=== PATIENT | male | born 1945 | race Caucasian/White ===

== ENCOUNTER 2018-09-15 09:05 | Day surgery (SDC) | payer OTHER | END 2018-09-15 11:25 | disposition still patient (30) | LOC: FSGY 09:05 ==

== ENCOUNTER 2018-09-15 11:25 | Inpatient (IN) | payer OTHER ==
[2018-09-15] MEDS ORDERED: IPRATROPIUM/ALBUTEROL 3 ML DEYVIAL IH ONE (11:26)
--- NOTE | 2018-09-15 11:26 | EDPHY ---
H & P Time Seen by Provider: 09/15/18 11:25 HPI/ROS: CHIEF COMPLAINT: Shortness of breath HISTORY OF PRESENT ILLNESS: Sent from preop where he was pre op battery change for his deep brain stimulator. Of note he has been having some wheezing and a cough since early this week, did stop taking his Lasix as well. He traveled here for a neurosurgical battery change of his brain stimulator but was noted in preop to be wheezy and was sent here for evaluation. Symptoms moderate, not associated with chest pain or leg swelling or hemoptysis. Not associated with fever or chills. Not better or worse with anything. REVIEW OF SYSTEMS: Eye: no change in vision ENT: no sore throat Cardiac: no chest pain or syncope Pulmonary: HPI Abdomen: no vomiting, diarrhea, abdominal pain Musculoskeletal: no back pain Skin: no rash Neuro: Baseline resting tremor. Constitutional: no fever : no urinary symptoms A comprehensive 10 point review of systems is otherwise negative aside from elements mentioned in the history of present illness. PAST MEDICAL HISTORY: Includes COPD and CHF, tremor with deep brain stimulator , on 3 L nasal cannula at baseline. Hypertension, CHF, coronary disease, pulmonary embolism, IVC filter. Social history: Lives in [place] General Appearance: Alert and conversant, cooperative. Eyes: No scleral icterus. ENT, Mouth: Normal mucous membranes. Respiratory: Bilateral expiratory wheezing. Cardiovascular: Regular rate and rhythm. Gastrointestinal: Abdomen is soft and non tender. Neurological: Alert, face symmetric, normal motor and sensory in extremities. He has the baseline resting tremor. Skin: Warm and dry, no rashes. Musculoskeletal: No peripheral edema. Psychiatric: Not agitated. Emergency Department course/MDM: Patient initially had atrial flutter rate 140 but since then heart rates have been in the 70s. He received DuoNeb albuterol and IV steroids. Repeat examination shows that he is still quite wheezy, plan to admit for continued treatment of his pulmonary exacerbation. I think pneumonia or PE or CHF for unlikely, most likely he has acute COPD exacerbation which is multifactorial. Smoking Status: Former smoker Constitutional: Initial Vital Signs Temperature (C) 37.5 C 09/15/18 11:31 Heart Rate 75 09/15/18 11:31 Respiratory Rate 18 09/15/18 11:31 Blood Pressure 132/100 H 09/15/18 11:31 O2 Sat (%) 99 09/15/18 11:31 O2 Delivery Mode Nasal Cannula O2 (L/minute) 3 Allergies/Adverse Reactions: lisinopril Allergy (Verified 09/15/18 11:34) cough Home Medications: Medication Instructions Recorded Albuterol Sulfate 90 mcg 09/15/18 Atorvastatin Calcium 40 mg 09/15/18 Budesonide/Formoterol 160/4.5 09/15/18 Furosemide 40 mg 09/15/18 Gabapentin 300 mg 09/15/18 Hydroxyzine HCl 25 mg 09/15/18 Lidocaine 5% 09/15/18 Losartan Potassium 50 mg 09/15/18 Metoprolol Succinate 25 mg 09/15/18 Oxycodone HCl 5 mg 09/15/18 Potassium Chloride 10 meq 09/15/18 Rivaroxaban 20 mg 09/15/18 Sertraline HCl 100 mg 09/15/18 Triamcinolone 0.1% 09/15/18 traZODone 09/15/18 Medical Decision Making - Diagnostics EKG Interpretation: 12-lead EKG interpreted by me; official reading is in computer system. My interpretation is atrial flutter rate 140 Imaging Results: Imaging Impressions Chest X-Ray 09/15/18 11:26 Impression: 1. Large retrocardiac hiatal hernia. 2. Bronchitis/airways disease. 3. No definite pneumonia. Imaging: I viewed and interpreted images myself Consult/Admit Bed Type: [facility] - Data Points Laboratory Results: Laboratory Results 09/15/18 11:55 09/15/18 11:55 09/15/18 09/15/18 09/15/18 12:00 11:55 11:55 WBC 5.48 10^3/uL 10^3/uL (3.80-9.50) RBC 3.92 10^6/uL L 10^6/uL (4.40-6.38) Hgb 11.1 g/dL L g/dL (13.7-17.5) Hct 35.1 % L % (40.0-51.0) MCV 89.5 fL fL (81.5-99.8) MCH 28.3 pg pg (27.9-34.1) MCHC 31.6 g/dL L g/dL (32.4-36.7) RDW 13.8 % % (11.5-15.2) Plt Count 153 10^3/uL 10^3/uL (150-400) MPV 10.6 fL fL (8.7-11.7) Neut % (Auto) 65.3 % % (39.3-74.2) Lymph % (Auto) 16.1 % % (15.0-45.0) [place] % (Auto) 15.9 % H % (4.5-13.0) Eos % (Auto) 1.6 % % (0.6-7.6) Baso % (Auto) 0.7 % % (0.3-1.7) Nucleat RBC Rel Count 0.0 % % (0.0-0.2) Absolute Neuts (auto) 3.58 10^3/uL 10^3/uL (1.70-6.50) Absolute Lymphs (auto) 0.88 10^3/uL L 10^3/uL (1.00-3.00) Absolute Monos (auto) 0.87 10^3/uL H 10^3/uL (0.30-0.80) Absolute Eos (auto) 0.09 10^3/uL 10^3/uL (0.03-0.40) Absolute Basos (auto) 0.04 10^3/uL 10^3/uL (0.02-0.10) Absolute Nucleated RBC 0.00 10^3/uL 10^3/uL (0-0.01) Immature Gran % 0.4 % % (0.0-1.1) Immature Gran # 0.02 10^3/uL 10^3/uL (0.00-0.10) Sodium 137 mEq/L mEq/L (135-145) Potassium 4.2 mEq/L mEq/L (3.5-5.2) Chloride 106 mEq/L mEq/L (97-110) Carbon Dioxide 24 mEq/l mEq/l (22-31) Anion Gap 7 mEq/L mEq/L (6-14) BUN 8 mg/dL mg/dL (7-23) Creatinine 0.8 mg/dL mg/dL (0.7-1.3) Estimated GFR > 60 Glucose 112 mg/dL H mg/dL (70-100) Calcium 8.4 mg/dL L mg/dL (8.5-10.4) POC Troponin I 0.01 ng/mL ng/mL (0.00-0.08) NT-Pro-B Natriuret Pep 474 pg/mL H pg/mL (0-125) Medications Given: Discontinued Medications Albuterol (Proventil Neb) 3 ml IH EDNOW ONE Stop: 09/15/18 12:33 Last Admin: 09/15/18 12:41 Dose: 3 ml Albuterol/Ipratropium (Duoneb) 3 ml IH EDNOW ONE Stop: 09/15/18 11:27 Last Admin: 09/15/18 11:58 Dose: 3 ml Methylprednisolone Sodium Succinate (Solu-Medrol) 125 mg IVP EDNOW ONE Stop: 09/15/18 11:44 Last Admin: 09/15/18 11:58 Dose: 125 mg Point of Care Test Results: Chemistry 09/15/18 12:00 POC Troponin I 0.01 ng/mL ng/mL (0.00-0.08) Departure - Departure Disposition: [facility] Inpatient Acute Clinical Impression: Chronic obstructive pulmonary disease with acute exacerbation Condition: Good
[2018-09-15] MEDS ORDERED: methylPREDNISolone SOD SUCC 125 MG/2 ML VIAL IVP ONE (11:43)
[2018-09-15 12:08] LABS: PLATELET COUNT 153 10^3/uL (150-400)
--- NOTE | 2018-09-15 12:08 | CPEKG ---
Test Reason : OPEN Blood Pressure : / mmHG Vent. Rate : 141 BPM Atrial Rate : 000 BPM P-R Int : 130 ms QRS Dur : 141 ms QT Int : 349 ms P-R-T Axes : 000 203 -07 degrees QTc Int : 535 ms A-flutter/fibrillation w/ complete AV block RBBB and LPFB Confirmed by Aleks De La Garza ([id number]) on 09/15/2018 12:07:25 PM Referred By: Aleks De La Garza Confirmed By:Aleks De La Garza
[2018-09-15] MEDS ORDERED: ALBUTEROL 3 ML DEYVIAL IH ONE (12:32)
[2018-09-15] MEDS ORDERED: ACETAMINOPHEN 325 MG TAB PO PRN (14:09)
[2018-09-15] MEDS ORDERED: ONDANSETRON 4 MG/2 ML VIAL IVP PRN (14:09)
--- NOTE | 2018-09-15 14:21 | PDGENHP ---
History and Physical History and Physical: CC: Shortness of breath HISTORY: This patient with COPD and heart disease is here from [place] and was to have an elective generator change for his deep brain stimulator due to battery, but was sent from the preop unit to the ER because of respiratory difficulties. (stimulator is for essential tremor) Pt has a hx of COPD (though minimal smoking hx) and uses inhalers, and resp failure on 2 L O2 at home. Also hx of CARRIE but intolerant of CPAP so does not use. States "exposure to a virus" 6 days ago and now 3 days of productive cough and worsening SOB, no chest or leg pain, no more swelling than usual that he notices. Also has a hx of A fib no current AF sxs; states no hx of CHF but he takes CHF medicines. States that he has never had any fluid in lungs, notes he once had an episode when 16 lbs of fluid was removed by diuresis. Received initial treatment in ER but still dyspneic so being admitted to treat resp issues. He does not recall time of last Echo, but knows it is > 1 year ago. ROS: A comprehensive 10 system review revealed no other significant findings PAST MEDICAL HISTORY: Essential tremor, debilitating, treated by deep brain stimulator COPD, though only 6 months of tobacco exposure total, decades ago CHF? 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 I have reviewed the list and ordered appropriate medicines. PHYSICAL EXAMINATION: Vital Signs: Stable with highest temperature so far 37.5; initial heart rate 150 however since heart rate in the 70s, and he has had stable blood pressures respirations. Highest temperature so far 37.5 [employer] Work[employer]: now in sinus w normal rate Examination: General: alert, oriented, good mentation; quite obese Skin: warm, dry, good color, no rash HEENT: normal Neck: no mass, JVD is present Resps: obvious resp distress at rest in bed on Oxygen Lungs: severely diminished but otherwise clear breath sounds Heart: regular, no murmur Abdomen: obese, soft, nondistended, nontender, +BS, no mass Upper Extremities: normal Lower Extremities: 1+ edema both legs from feet to knees No Bleeding or bruising Neurologic: normal speech/language, normal customer service officer, no focal weakness IV site: looks normal LABORATORY DATA: Normocytic anemia at 11+, otherwise unremarkable CBC. Unremarkable basic metabolic panel, troponin normal RADIOLOGY STUDIES: I reviewed chest x-ray images done in the ER two views: There is no pulmmonary edema or vasc congestion, COPD is present. His device is present over the right chest. There is a hiatal hernia present with air-fluid level MICROBIOLOGY: flu negative + Rhinovirus by PCR 12 LEAD EKG: I reviewed for tracing from the ER which shows rapid atrial flutter 2-1 block, heart rate approximately 150 ASSESSMENT: * Acute Hypoxemic Resp Failure * Acute Rhinovirus infection * COPD with acute exacerbation * Acute R side CHF exacerbation * Acute episode rapid A Flutter in ER spontaeous conversion, now sinus (suspect triggered by acute resp events); Chronic Paroxysmal A Fib/Flutter * Chronic Resp Failure on Home Oxygen * Known sleep apnea, intolerant of CPAP so not using * Suspect Pulmonary HTN * Suspect Obesity Hypoventilation Syndrome * Morbid Obesity * High risk of Resp Complications with anesthesia due to all of above, especially due to acute components * ? if he also has any cardiac L side or valve issues PLANS: * His admitted to the hospital for cardiac monitoring and management of his acute resp failure * surgery to be delayed until next week with appropriate stablization of his resp/cardiac issues; doubt he will wear CPAP here, but would push for it in post op setting if he remains in hospital post op * Will put continue xarelto for now, stop when it is felt he will be stable for surgery 48 hours from that time; would not use heparin bridge unless other issues indicate it * echo ordered to assess LV and valve functions * Continue his inhaled long acting combination therapy * Duonebs * Prednisone * zithromax added for acute episode * IV diuresis * low salt diet * continue metoprolol for rate control, may need increased med if any further rapid rate episodes * Suggested he seek outpt consultations for weight loss, and for other options for [facility], or he can come to our community for this * Suggested he seek consultation with urologist as well in outpt setting I have reviewed the patient's case in detail with Dr. Licha Adams. We agreed on plans as above, which I have reviewed w pt and as well
--- NOTE | 2018-09-15 15:02 | PDMN ---
Medical Necessity Medical necessity: [facility] M100 COPD- 73 yo M presents with SOB, wheezing- pt here for DBS battery change but was noted to have SOB/ wheezing- PMHx: COPD, CHF, afib/af, depression, hypercholesterolemia, HTN, PE, tremor with DBS, pt lives in [place] EKG in ER shows rapid aflutter 2-1 block, HR approx. 150., anticipate > 2 MN ongoing med nec care- further monitoring, eval and tx.
[2018-09-15] MEDS: IPRATROPIUM/ALBUTEROL 3 ML DEYVIAL IH SCH ×2 (15:29→21:03)
[2018-09-15] MEDS: predniSONE 20 MG TAB PO SCH (17:30)
[2018-09-15] MEDS ORDERED: AZITHROMYCIN 250 MG TAB PO ONE (17:43)
[2018-09-15] MEDS ORDERED: ALBUTEROL 60 PUFFS/8 GM MDI IH PRN (17:43)
[2018-09-15] MEDS ORDERED: hydrOXYzine HCL 25 MG TAB PO PRN (17:43)
[2018-09-15] MEDS ORDERED: valACYclovir 500 MG TAB PO PRN (17:43)
[2018-09-15] MEDS ORDERED: FUROSEMIDE 40 MG/4 ML VIAL IVP ONE (17:52)
[2018-09-15] MEDS ORDERED: PROTOCOL POTASSIUM 1 DOSE MISC PRN (17:53)
[2018-09-15] MEDS ORDERED: PROTOCOL MAGNESIUM 1 DOSE IV PRN (17:53)
[2018-09-15] MEDS ORDERED: LOSARTAN POTASSIUM 25 MG TAB PO SCH (18:00)
[2018-09-15] MEDS: oxyCODONE IR 5 MG TAB PO PRN (18:11)
[2018-09-15] MEDS: ATORVASTATIN CALCIUM 40 MG TAB PO SCH (18:23)
[2018-09-15] MEDS ORDERED: CYCLOBENZAPRINE 10 MG TAB PO ONE (19:37)
[2018-09-15] MEDS: MELATONIN 3 MG TAB PO SCH (20:25)
[2018-09-15] MEDS: DOCUSATE SODIUM 100 MG CAP PO SCH (20:25)
[2018-09-15] MEDS: METOPROLOL TARTRATE 25 MG TAB PO SCH (20:26)
[2018-09-15] MEDS: CARBOXYMETHYLCELLULOSE 1% 0.4 ML DROPERETTE EACHEYE SCH (20:28)
[2018-09-15] MEDS: BUDESONIDE/FORMOTEROL 160/4.5 60 PUFFS/MDI IH SCH (21:05)
[2018-09-16] MEDS: IPRATROPIUM/ALBUTEROL 3 ML DEYVIAL IH SCH ×4 (05:12→21:38)
[2018-09-16] MEDS: oxyCODONE IR 5 MG TAB PO PRN (05:28)
[2018-09-16] MEDS: CARBOXYMETHYLCELLULOSE 1% 0.4 ML DROPERETTE EACHEYE SCH ×4 (05:28→20:41)
--- NOTE | 2018-09-16 07:19 | GCON ---
[f rep st] CONSULTATION DATE OF CONSULTATION: 09/15/2018 HPI: The patient is a 73-year-old male who has essential tremor and history of bilateral deep brain stimulation [place] [address] Alegria. He has a single generator implanted in the right chest wall that was at end of life. He was therefore scheduled for surgery to undergo replacement of his deep b rain stimulator generator. He came for surgery today on September 15. Upon evaluation and preop, the p atient was found to be wheezing and having difficulty with breathing. He states he has not taken his Lasix in the past 2 days as he was traveling and forgot to. PAST MEDICAL HISTORY: Essential tremor, COPD, CHF, AFib/flutter, depression, hypercholesterolemia. FAMILY HISTORY: Denies any pertinent neurosurgical family history. PAST SURGICAL HISTORY: Deep brain stimulation in 2013. ALLERGIES: Lisinopril, morphine. CURRENT HOME MEDICATIONS: Symbicort, senna, Valtrex, oxycodone, Colace, albuterol, Lasix, Lipitor, h ydroxyzine, Lopressor, Cozaar, Zoloft Xarelto, Klor-Con, and triamcinolone cream. REVIEW OF SYSTEMS: Negative except for what is mentioned in HPI. PHYSICAL EXAM: Patient seen and examined. HEENT: The pupils are equal and reactive. His extraocul ar movements are intact. Facial expression is symmetrical. Tongue is midline with protrusion. Hear ing is grossly intact. EXTREMITIES: Muscle strength is well preserved in upper and lower extremitie s at a 5/5 and sensation is intact to light touch. ASSESSMENT/PLAN: In summary, the patient is a 73-year-old male with essential tremor, history of karan p brain stimulation. He originally presented to the hospital to undergo elective replacement of his DBS generator due to battery nearing end of life. He was found to have difficulty breathing and whee zing and thus the surgery was canceled and he was [facility] possible [facility] of COPD or CHF. We will continue to follow along while the maria guadalupe galvez is an inpatient admitted under Medicine. If the patient gets cleared from a medical standpoint , we could proceed with battery placement during this hospital admission. /[id number]/MODL
[2018-09-16] MEDS: AZITHROMYCIN 250 MG TAB PO SCH (08:21)
[2018-09-16] MEDS: DOCUSATE SODIUM 100 MG CAP PO SCH ×2 (08:21→20:41)
[2018-09-16] MEDS: SERTRALINE HCL 100 MG TAB PO SCH (08:21)
[2018-09-16] MEDS: POTASSIUM CL 20 MEQ TAB PO SCH (08:22)
[2018-09-16] MEDS: METOPROLOL TARTRATE 25 MG TAB PO SCH ×2 (08:22→20:41)
[2018-09-16] MEDS: predniSONE 20 MG TAB PO SCH ×2 (08:23→14:01)
[2018-09-16] MEDS: TRIAMCINOLONE 0.1% 15 GM CRTUBE TP SCH (08:30)
[2018-09-16] MEDS ORDERED: FUROSEMIDE 40 MG/4 ML VIAL IVP SCH (09:00)
[2018-09-16] MEDS ORDERED: RIVAROXABAN 20 MG TAB PO SCH (09:00)
--- NOTE | 2018-09-16 09:41 | SOAPPROG ---
SOAP Progress Note Assessment/Plan: Assessment: 73 yo M admitted for respirator failure prior to DBS battery placement Plan: neuro: stable can replace battery this week when cleared by medicine will hold xarelto 48 hour prior to surgery please call with neuro changes 09/16/18 09:39 Subjective: no issues, breathing improved Objective: Vital Signs Temp Pulse Resp BP Pulse Ox 36.8 C 65 18 111/63 97 09/16/18 07:58 09/16/18 07:58 09/16/18 07:58 09/16/18 07:58 09/16/18 07:58 Microbiology 09/15/18 17:20 Respiratory Panel (PCR) - Final Nasal, Sinus - Anaerobic Tube/Swab Human Rhinovirus/Enterovirus Laboratory Results 09/16/18 04:56 09/15/18 09/16/18 09/17/18 05:59 05:59 05:59 Intake Total 1075 Output Total 3200 Balance -2125 AAOx4 ,+FC PERRL, EOMI, no facial droop 5/5 + light touch ICD10 Worksheet Patient Problems: Problems Problem Status Onset Chronic obstructive pulmonary disease with acute exacerbation Acute
[2018-09-16] MEDS: BUDESONIDE/FORMOTEROL 160/4.5 60 PUFFS/MDI IH SCH ×2 (10:55→21:41)
--- NOTE | 2018-09-16 13:23 | HOSPPROG ---
Hospitalist Progress Note Assessment/Plan: ASSESSMENT: * Acute Hypoxemic Resp Failure, resolving * Acute Rhinovirus infection * COPD with acute exacerbation * Acute R side CHF exacerbation with volume overload. CXR did now reveal significant pulmonary edema * Hypotension in pt with hx of HTN, likely due to diuresis * Acute episode rapid A Flutter in ER spontaeous conversion, now sinus (suspect triggered by acute resp events); Chronic Paroxysmal A Fib/Flutter * Known sleep apnea, intolerant of CPAP so not using * Morbid Obesity PLANS: He has diuresed significantly but now has hypotension. Will hold diuretics and BP until reevaluation tomorrow increase Prednisone cont Azithromycin will hold Xarelto cont Meprolol can hopefully have DBS generator replaced while inpatient Subjective: low bp. resp status is improving. Objective: Vital Signs Temp Pulse Resp BP Pulse Ox 36.7 C 73 16 96/55 L 95 09/16/18 11:14 09/16/18 11:14 09/16/18 11:14 09/16/18 11:14 09/16/18 11:14 Microbiology 09/15/18 17:20 Respiratory Panel (PCR) - Final Nasal, Sinus - Anaerobic Tube/Swab Human Rhinovirus/Enterovirus Laboratory Results 09/16/18 04:56 09/15/18 09/16/18 09/17/18 05:59 05:59 05:59 Intake Total 1075 Output Total 3200 Balance -2125 - Physical Exam Constitutional: no apparent distress Eyes: PERRL Ears, Nose, Mouth, Throat: moist mucous membranes, hearing normal Cardiovascular: regular rate and rhythym, edema Respiratory: no respiratory distress, no rales or rhonchi, reduced air movement Gastrointestinal: normoactive bowel sounds, soft, non-tender abdomen Skin: warm Neurologic: AAOx3 Psychiatric: interacting appropriately, not anxious, not encephalopathic Lymph, Heme, Immunologic: No petechiae ICD10 Worksheet Patient Problems: Problems Problem Status Onset Chronic obstructive pulmonary disease with acute exacerbation Acute
--- NOTE | 2018-09-16 13:40 | ASMTCMCOM ---
CM Note CM Note Notes: Pt scheduled for deep brain stimulator battery replacement which has been postponed 2/2 COPD exacerbation. He has a hx of essential tremor with DBS placement in 2013. He also has a hx of COPD, CHF, afib, depression with med Zoloft. Surgery to follow when pt is medically cleared. CM will follow for any d/c needs however anticipate he will d/c home with his Brittni and no CM needs. D/C plan: TBD, anticipate home independent D/C plan: anticipate home independent Date Signed: 09/16/2018 01:40 PM Electronically Signed By:LAURO Castellanos
--- NOTE | 2018-09-16 13:55 | ECHO ---
[email or web address] [address] [address] Main: [phone] Fax: Transthoracic Echocardiogram Name: BLAYNE WINCHESTER MR#: [id number] Study Date: 09/16/2018 Study Time: 12:57 PM Date of : 1945 Age: 73 year(s) Height: 170.2 cm (67 in.) Weight: 127.01 kg (280 lb.) BSA: 2.33 m2 Gender: Male Examination: Echo Indication: suspect pulm HTN R side CHF, ? L side or valve dz Image Quality: Technically Difficult Contrast: Requested by: Allan Tavares BP: 96 mmHg/55 mmHg Heart Rate: Rhythm: Indication: suspect pulm HTN R side CHF, ? L side or valve dz Procedure Staff Quantitative Associate: Maryse Reeder [facility] Reading Physician: Melvi Toro MD Requesting Provider: Conclusions: Normal size left ventricle. No LV hypertrophy. Cannot rule out wall motion abnormality due to poor endocardial resolution. EF is 61 %. Grossly normal lv systolic function. Normal diastolic LV function. Grossly normal RV size and systolic function.. The left atrium is mildly dilated. Trivial to mild aortic valve regurgitation. No aortic valve stenosis is present. Trivial tricuspid valve regurgitation. Pulmonary artery pressure is not obtained due to inadequate TR jet. No pericardial effusion. There is no previous echocardiogram for comparison. Measurements: Chambers Valvular Assessment AV/MV Valvular Assessment TV/PV Normal Normal Normal Name Value Range Name Value Range Name Value Range Ao Pretty (MM): 3.0 cm (2.2 cm-3.7 AV Vmax: 1.64 m/s (1 m/s-1.7 PV Vmax: 1.03 m/s (0.6 m/s-0.9 cm) m/s) m/s) IVSd (2D): 0.8 cm (0.6 cm-1.1 AV maxP mmHg ( - ) PV PGmax: 4 mmHg ( - ) cm) LVOT Vmax: 1.21 m/s (0.7 m/s-1.1 LVDd (2D): 3.8 cm (4.2 cm-5.9 m/s) cm) SHAYNA (Vmax): 2.8 cm2 ( - ) LVDs (2D): 2.3 cm (2.1 cm-4 AR (PHT): 691 ms ( - ) cm) MV E Vmax: 0.77 m/s ( - ) LVPWd (2D): 0.9 cm (0.6 cm-1 MV A Vmax: 0.89 m/s ( - ) cm) MV E/A: 0.87 ( - ) Patient: BLAYNE WINCHESTER Study Date: 09/16/2018 Page 1 of 2 12:57 PM LVOTd 2.2 cm 2.2 cm mm LVEF (BP): 61 % (>=55 %) RVDd(2D): 3.2 cm (1.9 cm-3.8 cmmm) Continued Measurements: Chambers Valvular Assessment AV/MV Name Value Name Value LADs Lon.7 cm MV DecTime: 299 m/s LA Area: 26.1 cm2 MV E' Septal: 0.06 m/s LA Volume: 83 ml MV E/E' Septal: 12.50 LA Volume Index: 35.6 ml/m2 MV E/E' Lateral: 7.70 TAPSE: 2.3 cm AR Vmax: 3.49 cm/s RA Area: 15.1 cm2 Additional Vessels Name Value Ao Ascendin.6 cm Findings: Left Ventricle: Normal size left ventricle. No LV hypertrophy. Cannot rule out wall motion abnormality due to poor endocardial resolution. EF is 61 %. Grossly normal lv systolic function. Normal diastolic LV function. Right Ventricle: Grossly normal RV size and systolic function.. Left Atrium: The left atrium is mildly dilated. Right Atrium: The right atrium is normal in size. Mitral Valve: There is mild thickening of the mitral valve leaflets. Mild mitral annular calcification. Trivial mitral valve regurgitation. No mitral stenosis is present. Aortic Valve: The aortic valve is tri-leaflet. Aortic sclerosis is present. Trivial to mild aortic valve regurgitation. No aortic valve stenosis is present. Tricuspid Valve: Tricuspid valve not well visualized. Trivial tricuspid valve regurgitation. Pulmonary artery pressure is not obtained due to inadequate TR jet. Pulmonic Valve: Pulmonary valve not well visualized. There is no pulmonic regurgitation seen. Aorta: Normal size aortic root measuring 3.0 cm. Normal size ascending aorta measuring 3.6 cm. IVC: The IVC is not visualized. Pericardium: No pericardial effusion. (No Signature Object) Patient: BLAYNE WINCHESTER Study Date: 09/16/2018 Page 2 of 2 12:57 PM [id number]
[2018-09-16] MEDS: ATORVASTATIN CALCIUM 40 MG TAB PO SCH (17:03)
[2018-09-16] MEDS: MELATONIN 3 MG TAB PO SCH (20:41)
[2018-09-17] MEDS: CARBOXYMETHYLCELLULOSE 1% 0.4 ML DROPERETTE EACHEYE SCH ×4 (05:31→21:02)
[2018-09-17] MEDS: IPRATROPIUM/ALBUTEROL 3 ML DEYVIAL IH SCH ×4 (06:01→21:42)
[2018-09-17] MEDS: DOCUSATE SODIUM 100 MG CAP PO SCH ×2 (09:37→21:00)
[2018-09-17] MEDS: POTASSIUM CL 20 MEQ TAB PO SCH (09:37)
[2018-09-17] MEDS: predniSONE 20 MG TAB PO SCH (09:37)
[2018-09-17] MEDS: SERTRALINE HCL 100 MG TAB PO SCH (09:38)
[2018-09-17] MEDS: AZITHROMYCIN 250 MG TAB PO SCH (09:38)
[2018-09-17] MEDS: BUDESONIDE/FORMOTEROL 160/4.5 60 PUFFS/MDI IH SCH ×2 (09:42→21:43)
[2018-09-17] MEDS: TRIAMCINOLONE 0.1% 15 GM CRTUBE TP SCH (09:43)
[2018-09-17] MEDS: METOPROLOL TARTRATE 25 MG TAB PO SCH ×2 (09:55→20:59)
[2018-09-17] MEDS ORDERED: FUROSEMIDE 20 MG TAB PO ONE (10:23)
--- NOTE | 2018-09-17 10:29 | HOSPPROG ---
Hospitalist Progress Note Assessment/Plan: 73 yo male who was scheduled to have a DBS generator repaired and found to have increased O2 needs and wheezing. Surgery was postponed and he was admitted for further w/u and management ASSESSMENT: * Acute Hypoxemic Resp Failure, resolving, etiology primarily viral infection with acute COPD exacerbation. Some component of volume overload, but no significant pulmonary edema on CXR * Acute Rhinovirus infection * COPD with acute exacerbation * Acute R side CHF exacerbation with volume overload. CXR did now reveal significant pulmonary edema * TTE unremarkable, preserved LVEF, but did not measure pulmonary artery pressure * Hypotension in pt with hx of HTN, likely due to diuresis * Acute episode rapid A Flutter in ER spontaeous conversion, now sinus (suspect triggered by acute resp events); Chronic Paroxysmal A Fib/Flutter * Known sleep apnea, intolerant of CPAP so not using * Morbid Obesity PLANS: He has diuresed significantly but now with soft BP. The pt reports not compliance with scheduled diuretics and does not really recall when he last took them. Going forward he likely needs once daily dosing. Due to his soft BP, I will give Lasix 20mg once today and ongoing regimen (20mg - 40mg) po daily can be decided upon tomorrow. cont Azithromycin will hold Xarelto cont Meprolol, I will decrease dose given soft bp Hold ARB can hopefully have DBS generator replaced while inpatient. Last Xarelto dose was on 09/16/18 a.m. will make NPO at midnight in case procedure is possible. Subjective: no cp. sob is much improved. bp is still soft. Objective: Vital Signs Temp Pulse Resp BP Pulse Ox 36.7 C 64 16 99/65 L 97 09/17/18 07:43 09/17/18 07:43 09/17/18 07:43 09/17/18 07:43 09/17/18 07:43 Laboratory Results 09/17/18 04:36 09/16/18 09/17/18 09/18/18 05:59 05:59 05:59 Intake Total 1075 2150 Output Total 3200 1700 Balance -2125 450 - Physical Exam Constitutional: no apparent distress Eyes: PERRL, EOMI Ears, Nose, Mouth, Throat: moist mucous membranes Cardiovascular: regular rate and rhythym Respiratory: no respiratory distress, reduced air movement Gastrointestinal: normoactive bowel sounds Skin: warm Neurologic: AAOx3 Psychiatric: interacting appropriately, not anxious, not encephalopathic Lymph, Heme, Immunologic: No petechiae ICD10 Worksheet Patient Problems: Problems Problem Status Onset Chronic obstructive pulmonary disease with acute exacerbation Acute
--- NOTE | 2018-09-17 10:39 | SOAPPROG ---
SOAP Progress Note Assessment/Plan: Assessment: 73 yo M admitted for respirator failure prior to DBS battery placement Plan: neuro: stable can replace battery this week when cleared by medicine will discuss with Dr Adams about when she can do surgery during this admission will hold xarelto 48 hour prior to surgery please call with neuro changes 09/16/18 09:39 09/17/18 10:38 Subjective: feeling better overall Objective: Vital Signs Temp Pulse Resp BP Pulse Ox 36.7 C 64 16 99/65 L 97 09/17/18 07:43 09/17/18 07:43 09/17/18 07:43 09/17/18 07:43 09/17/18 07:43 Laboratory Results 09/17/18 04:36 09/16/18 09/17/18 09/18/18 05:59 05:59 05:59 Intake Total 1075 2150 Output Total 3200 1700 Balance -2125 450 AAOx4, +FC PERRL, EOMI, no facial droop 5/5 + light touch ICD10 Worksheet Patient Problems: Problems Problem Status Onset Chronic obstructive pulmonary disease with acute exacerbation Acute
[2018-09-17] MEDS: oxyCODONE IR 5 MG TAB PO PRN ×2 (12:20→18:03)
--- NOTE | 2018-09-17 13:09 | ASMTCMCOM ---
CM Note CM Note Notes: CM discussed with Dr. Lopez and Melvi RN, patient expected to undergo surgery tomorrow for deep brain stimulator battery replacement that was postponed due to COPD exacerbation. Anticipate discharge home with with no needs when medically necessary. CM to follow. D/C Plan: likely home independent. Date Signed: 09/17/2018 01:09 PM Electronically Signed By:Merle Kaplan
[2018-09-17] MEDS: ATORVASTATIN CALCIUM 40 MG TAB PO SCH (18:04)
[2018-09-17] MEDS: MELATONIN 3 MG TAB PO SCH (20:59)
[2018-09-17] MEDS: CYCLOBENZAPRINE 10 MG TAB PO PRN (22:24)
[2018-09-17] MEDS: guaiFENesin 600 MG TAB.ER PO SCH (22:24)
[2018-09-18] MEDS ORDERED: METOPROLOL TARTRATE 5 MG/5 ML INJ IVP ONE (02:18)
--- NOTE | 2018-09-18 02:36 | HOSPPROG ---
Hospitalist Progress Note Assessment/Plan: Hospitalist Night Float Note Notified by RN regarding variable BPs this AM 80s-150s. Arrived to bedside and patient with sustained afib in the 140s-150s. Patient asymptomatic. denies chest pain, palpitations. some increased SOB with laying flat, improved with patient on incline 30 degrees. Patient does not tolerate bipap at home has not worn in approximately 1 year per . SBP slightly declined 100s. 5 mg IV metoprolol given. patient reports he takes 12.5mg bid at home (not 25mg bid as listed). good response in HR 60s-70s persistent afib. on xarelto. likely respiratory driven. encouraged patient to keep bed slightly elevated as this helps with dsypnea. resume 12.5mg metoprolol in AM or sooner if HR escalates again. repeat BP improved. Objective: Vital Signs Temp Pulse Resp BP Pulse Ox 36.8 C 150 H 16 104/80 94 09/17/18 23:46 09/18/18 02:09 09/18/18 02:09 09/18/18 02:09 09/18/18 02:09 Laboratory Results 09/17/18 18:05 09/16/18 09/17/18 09/18/18 05:59 05:59 05:59 Intake Total 1075 2150 Output Total 3200 1700 975 Balance -2125 450 -975 ICD10 Worksheet Patient Problems: Problems Problem Status Onset Chronic obstructive pulmonary disease with acute exacerbation Acute
[2018-09-18 05:36] LABS: PLATELET COUNT 213 10^3/uL (150-400)
[2018-09-18] MEDS: CARBOXYMETHYLCELLULOSE 1% 0.4 ML DROPERETTE EACHEYE SCH ×4 (05:58→20:22)
[2018-09-18] MEDS: METOPROLOL TARTRATE 25 MG TAB PO SCH ×2 (05:58→20:23)
[2018-09-18] MEDS: LEVALBUTEROL 1.25 MG/3 ML DEYVIAL IH SCH ×4 (06:15→21:35)
[2018-09-18] MEDS: BUDESONIDE/FORMOTEROL 160/4.5 60 PUFFS/MDI IH SCH ×2 (09:34→21:35)
--- NOTE | 2018-09-18 11:15 | NEUSURGPN ---
Assessment/Plan: Assessment/Plan: Assessment: 73 yo M admitted for respirator failure prior to DBS battery placement Plan: neuro: stable can replace battery whenever cleared by medicine. Patient is currently NPO and has been off Xeralto for >48 hours so could be placed later today if cleared. Please call Neurosurgery if patient cleared. Otherwise, will let patient eat and may place NPO tonight for possible surgery tomorrow if cleared. Continue to hold Xeralto for now Overnight had some fluctuations in BP and HR. This has normalized please call with neuro changes S: Doing well, no complaints. Ready for surgery when cleared O: NAD, VSS PERRL, EOMI CN II-XII grossly intact HERRERA x4 Sensation intact to lt touch Yasmin Shukla PA-C [phone] - cell, please call with updates on medical clearance - Physician Discussed Patient with : Angie Neurosurgery Physical Exam - Vitals, I&O, Labs I and O 09/17/18 09/18/18 09/19/18 05:59 05:59 05:59 Intake Total 2150 Output Total 1700 1375 Balance 450 -1375 Weight 128.1 kg 128.367 kg Intake: Oral (ml) 2150 Output: Urine (ml) 1700 1375 Catheter 1700 1375 Other: Number of Stools Catheter 0 Vital Signs Temp Pulse Resp BP Pulse Ox 36.7 C 60 18 123/69 H 99 09/18/18 08:00 09/18/18 08:00 09/18/18 08:00 09/18/18 08:00 09/18/18 08:00 Laboratory Results 09/18/18 05:15 09/18/18 05:15 ICD10 Worksheet Patient Problems: Problems Problem Status Onset Chronic Disease Mgmt/Transitional Care Acute Chronic obstructive pulmonary disease with acute exacerbation Acute
--- NOTE | 2018-09-18 11:39 | HOSPPROG ---
Hospitalist Progress Note Assessment/Plan: #A fib with RVR: converted with IV Metoprolol -driven by resp infection, COPD. Changed nebs to Xopenex -Cont BB 12.5mg BID -would like to see vitals stable for 24 hours -Xarelto on hold for surgery tomorrow #Acute hypoxemic resp failure: due to Rhinovirus, COPD Xopenex, prednisone #COPD exacerbation: from Rhinovirus. Plan as above #CARRIE: does not wear CPAP. Encourage him #Diastolic HF/suspect RHF: not compliant with CPAP; encouraged him to wear -cont Lasix 20mg daily #Morbid obesity: counseled on diet #Essential tremor -DBS stimulator exchange tomorrow; discussed with ALEXIA Hoffman -pt and acknowledge increased cardiopulm risk given underlying a fib and resp failure and agree to proceed #Diet: 2L fluid restriction, NPO MN #DVT ppx: SCDs Inpatient admission for COPD exacerbation, DBS exchange Subjective: a fib RVR 2am, HR 150s Objective: Vital Signs Temp Pulse Resp BP Pulse Ox 36.8 C 68 24 H 137/88 H 96 09/18/18 11:32 09/18/18 11:32 09/18/18 11:32 09/18/18 11:32 09/18/18 11:32 Laboratory Results 09/18/18 05:15 09/18/18 05:15 09/17/18 09/18/18 09/19/18 05:59 05:59 05:59 Intake Total 2150 Output Total 1700 1375 Balance 450 -1375 - Time Spent With Patient Time Spent with Patient: greater than 35 minutes Time Spent with Patient: Greater than 35 minutes spent on this patients care, greater than 50% of time spent counseling, educating, and coordinating care regarding the above mentioned plan. - Physical Exam Constitutional: obese Ears, Nose, Mouth, Throat: hard of hearing Cardiovascular: regular rate and rhythym Respiratory: expiratory wheeze, other (tight, some rhonchi) Gastrointestinal: normoactive bowel sounds Genitourinary: no bladder fullness Skin: warm Musculoskeletal: full muscle strength Neurologic: AAOx3, CN II-XII Intact, other (essential tremor involving limbs, torso and head) Psychiatric: interacting appropriately ICD10 Worksheet Patient Problems: Problems Problem Status Onset Chronic Disease Mgmt/Transitional Care Acute Chronic obstructive pulmonary disease with acute exacerbation Acute
[2018-09-18] MEDS: DOCUSATE SODIUM 100 MG CAP PO SCH ×2 (11:46→20:23)
[2018-09-18] MEDS: AZITHROMYCIN 250 MG TAB PO SCH (11:46)
[2018-09-18] MEDS: POTASSIUM CL 20 MEQ TAB PO SCH (11:46)
[2018-09-18] MEDS: SENNOSIDES 1 TAB PO SCH (11:46)
[2018-09-18] MEDS: predniSONE 20 MG TAB PO SCH (11:47)
[2018-09-18] MEDS: FUROSEMIDE 20 MG TAB PO SCH (11:47)
[2018-09-18] MEDS: SERTRALINE HCL 100 MG TAB PO SCH (11:47)
[2018-09-18] MEDS: guaiFENesin 600 MG TAB.ER PO SCH ×2 (11:47→20:23)
[2018-09-18] MEDS: TRIAMCINOLONE 0.1% 15 GM CRTUBE TP SCH (11:54)
[2018-09-18] MEDS: ATORVASTATIN CALCIUM 40 MG TAB PO SCH (17:56)
[2018-09-18] MEDS: MELATONIN 3 MG TAB PO SCH (20:23)
[2018-09-18] MEDS: oxyCODONE IR 5 MG TAB PO PRN (23:35)
[2018-09-18] MEDS: CYCLOBENZAPRINE 10 MG TAB PO PRN (23:35)
[2018-09-19] MEDS: LEVALBUTEROL 1.25 MG/3 ML DEYVIAL IH SCH ×4 (05:24→22:23)
[2018-09-19] MEDS: CARBOXYMETHYLCELLULOSE 1% 0.4 ML DROPERETTE EACHEYE SCH ×6 (06:11→20:58)
[2018-09-19] MEDS: oxyCODONE IR 5 MG TAB PO PRN ×2 (07:56→20:49)
[2018-09-19] MEDS: CYCLOBENZAPRINE 10 MG TAB PO PRN ×2 (07:57→20:48)
[2018-09-19] MEDS: predniSONE 20 MG TAB PO SCH (07:57)
[2018-09-19] MEDS: guaiFENesin 600 MG TAB.ER PO SCH ×2 (07:57→20:48)
[2018-09-19] MEDS: POTASSIUM CL 20 MEQ TAB PO SCH (07:58)
[2018-09-19] MEDS: DOCUSATE SODIUM 100 MG CAP PO SCH ×2 (07:58→20:48)
[2018-09-19] MEDS: SERTRALINE HCL 100 MG TAB PO SCH (07:58)
[2018-09-19] MEDS: AZITHROMYCIN 250 MG TAB PO SCH (07:58)
[2018-09-19] MEDS: FUROSEMIDE 20 MG TAB PO SCH (07:59)
[2018-09-19] MEDS: METOPROLOL TARTRATE 25 MG TAB PO SCH ×2 (07:59→20:50)
--- NOTE | 2018-09-19 08:12 | HOSPPROG ---
Hospitalist Progress Note Assessment/Plan: #A fib with RVR: converted with IV Metoprolol -driven by resp infection, COPD. Changed nebs to Xopenex -Cont BB 12.5mg BID -vitals stable past 24hrs -Xarelto on hold for surgery today #Acute hypoxemic resp failure: due to Rhinovirus, COPD Xopenex, prednisone (Day 4/5) -incentive spirometry #COPD exacerbation: from Rhinovirus. Plan as above #CARRIE: does not wear CPAP. Encourage him #Diastolic HF/suspect RHF: not compliant with CPAP; encouraged him to wear -cont Lasix 20mg daily #Morbid obesity: counseled on diet #Essential tremor -DBS stimulator exchange tomorrow; discussed with ALEXIA Hoffman -pt and acknowledge increased cardiopulm risk given underlying a fib and resp failure and agree to proceed -PT after procedure #Diet: 2L fluid restriction, NPO MN #DVT ppx: SCDs Inpatient admission for COPD exacerbation, DBS exchange Subjective: no chest pain, SOB Objective: Vital Signs Temp Pulse Resp BP Pulse Ox 36.6 C 70 18 142/70 H 98 09/19/18 07:34 09/19/18 07:34 09/19/18 07:34 09/19/18 07:34 09/19/18 07:34 Laboratory Results 09/18/18 05:15 09/18/18 19:18 09/18/18 09/19/18 09/20/18 05:59 05:59 05:59 Intake Total 1000 Output Total 1375 1500 Balance -1375 -500 - Time Spent With Patient Time Spent with Patient: greater than 35 minutes Time Spent with Patient: Greater than 35 minutes spent on this patients care, greater than 50% of time spent counseling, educating, and coordinating care regarding the above mentioned plan. - Physical Exam Constitutional: obese Ears, Nose, Mouth, Throat: hard of hearing Cardiovascular: regular rate and rhythym Respiratory: expiratory wheeze Gastrointestinal: normoactive bowel sounds Genitourinary: no bladder fullness Skin: warm Musculoskeletal: full muscle strength Neurologic: other (tremor, kei with arm extension) Psychiatric: interacting appropriately, flat affect ICD10 Worksheet Patient Problems: Problems Problem Status Onset Chronic Disease Mgmt/Transitional Care Acute Chronic obstructive pulmonary disease with acute exacerbation Acute
[2018-09-19] MEDS: TRIAMCINOLONE 0.1% 15 GM CRTUBE TP SCH (08:20)
--- NOTE | 2018-09-19 08:48 | SOAPPROG ---
SOAP Progress Note Assessment/Plan: Assessment: 73 yo M admitted for respirator failure prior to DBS battery placement Plan: neuro: stable and feeling better Dr Adams to replace battery today NPO please call with neuro changes 09/16/18 09:39 09/17/18 10:38 09/19/18 08:46 Subjective: no heaches, continues tremor, no weakness Objective: Vital Signs Temp Pulse Resp BP Pulse Ox 36.6 C 70 18 142/70 H 98 09/19/18 07:34 09/19/18 07:34 09/19/18 07:34 09/19/18 07:34 09/19/18 07:34 Laboratory Results 09/18/18 05:15 09/18/18 19:18 09/18/18 09/19/18 09/20/18 05:59 05:59 05:59 Intake Total 1000 Output Total 1375 1500 Balance -1375 -500 AAOx4, +FC PERRL, EOMI, no facial droop 5/5 + light touch ICD10 Worksheet Patient Problems: Problems Problem Status Onset Chronic Disease Mgmt/Transitional Care Acute Chronic obstructive pulmonary disease with acute exacerbation Acute
[2018-09-19] MEDS: BUDESONIDE/FORMOTEROL 160/4.5 60 PUFFS/MDI IH SCH ×2 (10:39→22:23)
[2018-09-19] MEDS ORDERED: LR 1,000 ML IV ONE (12:57)
[2018-09-19] MEDS ORDERED: BACITRACIN ZINC 0.5 OZ OINTTUBE TP ONE (15:11)
[2018-09-19] MEDS ORDERED: GENTAMICIN SULFATE 80 MG/2 ML VIAL ONE (15:12)
[2018-09-19] MEDS ORDERED: EPINEPHrine 1 MG/ML INJ ONE (15:12)
[2018-09-19] MEDS ORDERED: BUPIVACAINE 0.25% 30 ML SDV ONE (15:12)
[2018-09-19] MEDS ORDERED: CHLORHEXIDINE GLUC HIBICLENS 118 ML BTL TP ONE (15:24)
--- NOTE | 2018-09-19 15:24 | PDANEPAE ---
ANE Past Medical History - Cardiovascular History Hx Hypertension: Yes Hx Arrhythmias: Yes Hx Chest Pain: No Hx Coronary Artery / Peripheral Vascular Disease: Yes Hx CHF / Valvular Disease: Yes Hx Palpitations: Yes Cardiovascular History Comment: IVC filter, tachycardia, occasional palpitations - Pulmonary History Hx COPD: Yes Hx Asthma/Reactive Airway Disease: No Hx Recent Upper Respiratory Infection: Yes Hx Oxygen in Use at Home: Yes O2 in Use at Home (L/minute): 3 Hx Sleep Apnea: Yes Sleep Apnea Screening Result - Last Documented: Positive - Neurologic History Hx Cerebrovascular Accident: No Hx Seizures: No Hx Dementia: No - Endocrine History Hx Diabetes: No Hypothyroid: No Hyperthyroid: No Obesity: yes, severe - Renal History Hx Renal Disorders: No - Liver History Hx Hepatic Disorders: No - Neurological & Psychiatric Hx Hx Neurological and Psychiatric Disorders: Yes Neurological / Psychiatric History Comment: tremors - Cancer History Hx Cancer: Yes Cancer History Comment: melanoma on back - Congenital Disorder History Hx Congenital Disorders: No - GI History GERD: no Hx Gastrointestinal Disorders: Yes Gastrointestinal History Comment: occasional constipation - Other Health History Other Health History: hx of DVT/PE - Surgical History Prior Surgeries: amy knee replacement. trigger finger. deep brain stimualter. multiple cyst removals. anal fistula ANE Review of Systems Review of Systems: - Exercise capacity Exercise capacity: <4 METS ANE Patient History - Allergies Allergies/Adverse Reactions: lisinopril Allergy (Verified 09/15/18 11:34) cough morphine Allergy (Verified 09/15/18 14:44) Hives - Home Medications Home Medications: Albuterol [Proventil Inhaler HFA (*)] 1 puffs IH Q4-6PRN PRN 09/15/18 [Last Taken 09/14/18] Atorvastatin Calcium [Lipitor 40 mg (*)] 40 mg PO DAILY18 09/15/18 [Last Taken 2 Days Ago ~09/13/18] Budesonide/Formoterol 160/4.5 [Symbicort 160-4.5 Mcg Inh (*)] 2 puffs IH BID 08/05 [Last Taken 09/13/18] Carboxymethylcellulose 1% [Refresh Celluvisc (*)] 1 drop EACHEYE QID 09/15/18 [ Last Taken Unknown] Dex Elix/Diphn/Lido/Nyst 5 ml PO Q6HRS PRN 09/15/18 [Last Taken Unknown] Docusate Sodium [Colace] 200 mg PO BID 09/15/18 [Last Taken Unknown] Furosemide [Lasix] 40 mg PO BID 09/15/18 [Last Taken 2 Weeks Ago ~09/01/18] Losartan Potassium [Cozaar 25 mg (*)] 25 mg PO DAILY18 09/15/18 [Last Taken 2 Days Ago ~09/13/18] Metoprolol Tartrate [Lopressor 25 mg (*)] 12.5 mg PO DAILY 09/15/18 [Last Taken 2 Days Ago ~09/13/18] Potassium Cl [Klor-Con 20 meq (*)] 20 meq PO DAILY 09/15/18 [Last Taken 2 Days Ago ~09/13/18] Rivaroxaban [Xarelto 10mg (*)] 20 mg PO DAILY 09/15/18 [Last Taken 2 Days Ago ~ 09/13/18] Sennosides [Senna Lax] 8.6 mg PO MWF 09/15/18 [Last Taken Unknown] Sertraline HCl [Zoloft 100mg (*)] 100 mg PO DAILY 09/15/18 [Last Taken 09/14/18] Triamcinolone 0.1% [Triamcinolone 0.1% Cream (*)] 1 lexie TP DAILY 09/15/18 [Last Taken 2 Days Ago ~09/13/18] hydrOXYzine HCL [hydrOXYzine HCL (RX)] 25 mg PO BID PRN 09/15/18 [Last Taken ] oxyCODONE IR [Oxycodone Ir (*)] 5 mg PO Q6HRS PRN 09/15/18 [Last Taken 09/14/18] valACYclovir [Valtrex (*)] 1,000 mg PO BID PRN 09/15/18 [Last Taken Unknown] - NPO status NPO Since - Liquids (Date): 09/19/18 NPO Since - Liquids (Time): 00:01 NPO Since - Solids (Date): 09/19/18 NPO Since - Solids (Time): 00:01 - Anes Hx Anes Hx: no prior problems - Smoking Hx Smoking Status: Former smoker Marijuana use: No - Family Anes Hx Family Anes Hx: neg - N/A Family Hx Anesthesia Complications: not known- adopted ANE Labs/Vital Signs - Labs Result Diagrams: 09/18/18 05:15 09/18/18 19:18 - Vital Signs Blood Pressure: 132/70 Heart Rate: 63 Respiratory Rate: 18 O2 Sat (%): 98 Height: 170.18 cm Weight: 128.3 kg ANE Physical Exam - Airway Neck exam: decreased ROM Mallampati Score: Class 3 Mouth exam: normal dental/mouth exam - Pulmonary Pulmonary: reduced air movement - Cardiovascular Cardiovascular: regular rate and rhythym, no murmur, rub, or gallop - ASA Status ASA Status: III ANE Anesthesia Plan Anesthesia Plan: MAC Total IV Anesthesia: Yes
[2018-09-19] MEDS ORDERED: MIDAZOLAM 2 MG/2 ML VIAL ONE (15:35)
[2018-09-19] MEDS ORDERED: MIDAZOLAM 2 MG/2 ML VIAL IVP ONE (15:35)
[2018-09-19] MEDS ORDERED: PROPOFOL/EMULSION 500 MG/50 ML BOTTLE IV ONE (15:38)
[2018-09-19] MEDS ORDERED: fentaNYL 100 MCG/2 ML INJ ONE (15:38)
[2018-09-19] MEDS ORDERED: LIDOCAINE 2% 5 ML SDV ONE (15:44)
[2018-09-19] MEDS ORDERED: PROPOFOL 200 MG/20 ML VIAL ONE (15:44)
[2018-09-19] MEDS ORDERED: ceFAZolin 1 GM VIAL ONE ×3 (15:52→15:54)
--- NOTE | 2018-09-19 16:32 | POSTOPPROG ---
Post Op Note Date of Operation: 09/19/18 Surgeon: Jamar Caballero Pre-op Diagnosis: ET Post-op Diagnosis: same Indication: generator PAZ Procedure: replacement right chest generatior Inf/Abcess present in the surg proc area at time of surgery?: No Depth: Superfical (Skin SQ) EBL: Minimal (Doing well postop, pain controlled incision c/d/i ok to transfer to floor and dc when cleared by medicine dressing to be removed in 3 days fu 2 weeks for sutures, informed)
[2018-09-19] MEDS ORDERED: PROMETHAZINE HCL 25 MG/ML INJ IVP PRN (16:37)
[2018-09-19] MEDS ORDERED: HYDROCODONE/APAP 5/325 TAB PO PRN (16:37)
[2018-09-19] MEDS ORDERED: ONDANSETRON 4 MG/2 ML VIAL IVP PRN (16:37)
[2018-09-19] MEDS ORDERED: NALOXONE HCL 0.4 MG/ML INJ IVP PRN (16:37)
[2018-09-19] MEDS ORDERED: ACETAMINOPHEN 500 MG TAB PO PRN (16:37)
[2018-09-19] MEDS ORDERED: LR 500 ML IV PRN (16:37)
[2018-09-19] MEDS ORDERED: PHENYLEPHRINE HCL 100 MCG/ML SYR IVP PRN (16:37)
--- NOTE | 2018-09-19 16:38 | POSTANESTH ---
Post Anesthetic Evaluation Cardiovascular Status: Similar to Pre-Op Cond Respiratory Status: Similar to Pre-op Cond. Level of Consciousness/Mental Status: Can Participate in Eval Pain Control: Adequate, Prn Tx Ordered Nausea/Vomiting Control: Adequate, Prn Tx Ordered Complications Possibly Related to Anesthesia: None Noted
--- NOTE | 2018-09-19 17:19 | GOP ---
[f rep st] OPERATIVE REPORT DATE OF OPERATION: 09/19/2018 SURGEON: Licha Adams DO NEUROSURGEON: Licha Adams D.O. [employer]ING [employer]CH[employer]IC APPRENTICE: None. ANESTHESIA: Local with MAC. PREOPERATIVE DIAGNOSIS: Essential tremor. POSTOPERATIVE DIAGNOSIS: Essential tremor. PROCEDURE PERFORMED: 1. Placement of right deep brain stimulator dual channel generator with [employer] PC. 2. Impedances x2. FINDINGS: SPECIMENS: None. ESTIMATED BLOOD LOSS: 3 mL. INDICATIONS: This is a 73-year-old male with a deep brain stimulator generator at end of life. He w as supposed to have surgery on Tuesday, approximately 4 days ago, came in with an upper respiratory vi jones. He has not been cleared by Medicine and is available for replacement. His generator abruptly d ied just prior to surgery last Tuesday. DESCRIPTION OF PROCEDURE: He was identified consented. Sites were marked. Brought to the operating room. Anesthetized under local with MAC. Incision site was marked, and he was prepped and draped i n the usual sterile fashion. Incision was anesthetized with 0.5% Marcaine with epinephrine. Incisio n was made with a 10 blade. Hemostasis was obtained with the PlasmaBlade dissecting down onto the ge nerator, brought it up and out using the torque wrench. Removed the leads, kept it in the same confi guration. Gently dried the leads, placed them in the new battery, locked them into place with a torq ue wrench. Replaced it into the pocket. Checked impedances bilaterally. Impedances were good. Sut ured the generator to the chest wall with 2 silk stitches at 2 positions. Irrigated with over a lite r of gentamicin-infused saline. Closed subcutaneous layer with 2-0 Vicryl pop-offs. The skin was cl osed with 3-0 running nylon. Dressed with Xeroform gauze and a Tegaderm. Patient tolerated procedur e well. No complications. FLUIDS: 300 mL crystalloid. URINE OUTPUT: None. DRAINS: None. COMPLICATIONS: None. /[id number]/MODL
[2018-09-19] MEDS: ATORVASTATIN CALCIUM 40 MG TAB PO SCH (17:41)
[2018-09-19] MEDS: MELATONIN 3 MG TAB PO SCH (20:49)
[2018-09-20] MEDS ORDERED: oxyCODONE IR 5 MG TAB PO ONE (00:47)
[2018-09-20] MEDS ORDERED: oxyCODONE IR 5 MG TAB PO PRN (00:48)
[2018-09-20] MEDS: CYCLOBENZAPRINE 10 MG TAB PO PRN (04:39)
[2018-09-20] MEDS: LEVALBUTEROL 1.25 MG/3 ML DEYVIAL IH SCH ×2 (05:59→09:08)
--- NOTE | 2018-09-20 07:58 | SOAPPROG ---
SOAP Progress Note Assessment/Plan: Assessment: 73 yo M POD#1 replacement of right DBS battery Plan: neuro: stable and doing well overall ok to dc home if ok with Hospitalists follow up with DR Adams in 2 weeks please call with neuro changes discussed with Dr Adams 09/16/18 09:39 09/17/18 10:38 09/19/18 08:46 09/20/18 07:57 Subjective: tremors better, no pain, no weakness. Objective: Vital Signs Temp Pulse Resp BP Pulse Ox 36.8 C 63 15 137/63 H 95 09/20/18 04:00 09/20/18 04:00 09/20/18 04:00 09/20/18 04:00 09/20/18 04:00 Laboratory Results 09/18/18 05:15 09/20/18 04:50 09/19/18 09/20/18 09/21/18 05:59 05:59 05:59 Intake Total 1000 500 Output Total 1500 1028 Balance -500 -528 AAOx4, +FC PERRL, EOMI, no facial droop 5/5 + light touch C/D/I ICD10 Worksheet Patient Problems: Problems Problem Status Onset Chronic Disease Mgmt/Transitional Care Acute Chronic obstructive pulmonary disease with acute exacerbation Acute
[2018-09-20] MEDS: CARBOXYMETHYLCELLULOSE 1% 0.4 ML DROPERETTE EACHEYE SCH ×2 (08:04→11:56)
[2018-09-20] MEDS: DOCUSATE SODIUM 100 MG CAP PO SCH (08:28)
[2018-09-20] MEDS: predniSONE 20 MG TAB PO SCH (08:28)
[2018-09-20] MEDS: guaiFENesin 600 MG TAB.ER PO SCH (08:28)
[2018-09-20] MEDS: POTASSIUM CL 20 MEQ TAB PO SCH (08:29)
[2018-09-20] MEDS: FUROSEMIDE 20 MG TAB PO SCH (08:29)
[2018-09-20] MEDS: METOPROLOL TARTRATE 25 MG TAB PO SCH (08:29)
[2018-09-20] MEDS: SENNOSIDES 1 TAB PO SCH (08:30)
[2018-09-20] MEDS: SERTRALINE HCL 100 MG TAB PO SCH (08:35)
[2018-09-20] MEDS: BUDESONIDE/FORMOTEROL 160/4.5 60 PUFFS/MDI IH SCH (08:36)
[2018-09-20] MEDS: TRIAMCINOLONE 0.1% 15 GM CRTUBE TP SCH (08:37)
--- NOTE | 2018-09-20 11:22 | PDIAF ---
- Diagnosis Diagnosis: Tremor, tachycardia Code Status: Full Code - Medication Management Discharge Medications: electronically signed and located in the Home Medication List. - Orders Services needed: Home Care, Physical Therapy, Occupational Therapy Home Care Face to Face: I certify that this patient was under my care and that I had the required [id number] encounter meeting the encounter requirements on the discharge day. My findings support the fact that the patient is homebound as defined in Home Care Face to Face Continued: CMS Chapter 7 Medicare Benefits Manual 30.1.1 , The condition of the patient is such that there exists a normal inability to leave home and consequently, leaving home would require a considerable and taxing effort. Isolation Type: Droplet Isolation Additional Instructions: Follow up with Dr Adams in 2 weeks, to schedule appointment Discharge with JOHN [facility] post op instructions from [email or web address] - Follow Up Care Current Providers and Referrals: NONE *PRIMARY CARE P,. [Primary Care Provider] - As per Instructions
[2018-09-20 12:04] VITALS: BP 166/94
--- NOTE | 2018-09-20 12:11 | CPEKG ---
Test Reason : OPEN Blood Pressure : / mmHG Vent. Rate : 146 BPM Atrial Rate : 000 BPM P-R Int : 130 ms QRS Dur : 134 ms QT Int : 340 ms P-R-T Axes : 000 208 000 degrees QTc Int : 530 ms Wide complex tachycardia with RBBB. Can not exclude ventricular origen. Confirmed by Zackery Guerra ([id number]) on 09/20/2018 12:10:18 PM Referred By: Allan Tavares Confirmed By:Zackery Guerra
[2018-09-20] MEDS ORDERED: RIVAROXABAN 20 MG TAB PO SCH (13:00)
--- NOTE | 2018-09-20 14:13 | ASMTDCNOTE ---
Case Management Discharge Discharge Order Complete? Answers: Yes Patient to Obtain Answers: via Family Medications Transportation Arranged Answers: Family/Friends Family Notified Answers: Yes Discharge Comments Notes: Pt is being discharged with HHC. CM contacted [facility] ([phone]) in [place], [place] and instructed pt's family on referral process/ follow-up after discharge. Pt's PCP is Marifer Garcia at the [facility] in [place].[facility] is aware. Contact information current. No other CM needs identified. Family to transport. Date Signed: 09/20/2018 01:40 PM Electronically Signed By:ESPERANZA Obregon
--- NOTE | 2018-09-20 15:28 | ASDISCHSUM ---
Discharge Information Plan Status:Home with Home Health Medically Cleared to Leave: Discharge Date:09/20/2018 01:38 PM CM D/C Disposition:Home, Routine, Self-Care ADT D/C Disposition:Home, Routine, Self-Care Projected Discharge Date:09/20/2018 12:00 AM Transportation at D/C:Family Discharge Delay Reason: Follow-Up Date:09/20/2018 12:00 AM Discharge Slot: Final Diagnosis: Placement Information Patient Contact Information Contact Name:SHERLY Relationship: Address: Work Phone: City: [facility] Phone: State/[place] Code: Email: Financial Information Financial Class:Medicare Primary Plan Desc:MEDICARE INPATIENT Primary Plan Number:[id number] Secondary Plan Desc:[employer] Secondary Plan Number:[id number] Assessment Information LACE LACE Length of stay for Answers: 4-6 days current admission Acuity / Level of Answers: Yes Care: Did the patient have an inpatient admission? Comorbidities - select Answers: Chronic pulmonary disease all that apply Congestive heart failure Other Notes: essential tremor, DBS # of Emergency department Answers: 1-2 visits in the last 6 months Social determinants Answers: Mental health diagnosis (anxiety, depression, pers onality disorders, etc.) Score: 16 Date Signed: 09/20/2018 03:27 PM Electronically Signed By:ESPERANZA Obregon [facility] CM Progress Note CM Note CM Note Notes: Pt scheduled for deep brain stimulator battery replacement which has been postponed 2/2 COPD exacerbation. He has a hx of essential tremor with DBS placement in 2013. He also has a hx of COPD, CHF, afib, depression with med Zoloft. Surgery to follow when pt is medically cleared. CM will follow for any d/c needs however anticipate he will d/c home with his Brittni and no CM needs. D/C plan: TBD, anticipate home independent D/C plan: anticipate home independent Date Signed: 09/16/2018 01:40 PM Electronically Signed By:LAURO Castellanos [facility] CM Progress Note CM Note CM Note Notes: CM discussed with Dr. Lopez and Melvi HAMM, patient expected to undergo surgery tomorrow for deep brain stimulator battery replacement that was postponed due to COPD exacerbation. Anticipate discharge home with with no needs when medically necessary. CM to follow. D/C Plan: likely home independent. Date Signed: 09/17/2018 01:09 PM Electronically Signed By:Merle Kaplan Case Management Discharge Plan Note Case Management Discharge Discharge Order Complete? Answers: Yes Patient to Obtain Answers: via Family Medications Transportation Arranged Answers: Family/Friends Family Notified Answers: Yes Discharge Comments Notes: Pt is being discharged with [facility]. CM contacted [facility] ([phone]) in [place], [place] and instructed pt's family on referral process/ follow-up after discharge. Pt's PCP is Marifer Garcia at the [facility] in [place].[facility] is aware. Contact information current. No other CM needs identified. Family to transport. Date Signed: 09/20/2018 01:40 PM Electronically Signed By:ESPERANZA Obregon Intervention Information Intervention Type:*IM-Signed Date of Service:09/20/2018 11:54 AM Patient Type:Inpatient Staff Member:Milagro Ordonez Hours: Discipline: Severity: Comment:
--- NOTE | 2018-09-20 16:02 | GDS ---
[f rep st] DISCHARGE SUMMARY DISCHARGE DIAGNOSES: 1. Essential tremor status post placement of right deep brain stimulation dual channel generator. 2. Atrial fibrillation with rapid ventricular response. 3. Acute hypoxemic respiratory failure. 4. Rhinovirus. 5. Chronic obstructive pulmonary disease exacerbation. 6. Obstructive sleep apnea, not compliant with continuous positive airway pressure therapy. 7. Diastolic heart failure, suspected right heart failure. 8. Morbid obesity. 9. Chronic hypoxemic respiratory failure on 2 liters. CONSULTATIONS: Dr. Adams. PROCEDURES: DBS generator placement 09/19/2018. HISTORY OF PRESENT ILLNESS: A 73-year-old male with essential tremor, COPD, here from [place] to [facility] an elective generator change for his deep brain stimulator due to a battery. He was sent from the preop unit to the ER because of respiratory difficulties. He has a history of COPD and uses 2 L chronically at home. He also has a history of atrial fibrillation. HOSPITAL COURSE BY PROBLEM: 1. Acute on chronic hypoxemic respiratory failure: Secondary to rhinovirus and COPD exacerbation. He is now at his baseline 2 L. 2. Acute rhinovirus, URI: Supportive care. 3. COPD exacerbation, status post prednisone and azithromycin, DuoNebs. 4. Acute on chronic right side heart failure/diastolic heart failure exacerbation. May resume home Lasix. Continue blood pressure medications. 5. Atrial fibrillation/flutter: Secondary to COPD and acute URI. Converted with IV metoprolol. He is now in normal sinus rhythm. Resume home beta deandre. Resume Xarelto. 6. Essential tremor: Status post DBS battery replacement. 7. CARRIE: He is not compliant with CPAP. I did educate he and his this is essential to prevent progression of right heart failure. 8. Morbid obesity: Counseled on diet. 9. Deconditioning: Home PT, OT. 10. Disposition: Patient is stable for discharge. Discharge home with home care. NEW MEDICATIONS: None. FOLLOWUP: 1. Neurosurgery. 2. PCP. PHYSICAL EXAMINATION: Today, VITAL SIGNS: Temperature 36.8, blood pressure /94, heart rat e in the 70s, respirations 18, 93% on 1 L. GENERAL: He is obese, lying in bed, no acute distress. HEENT: PERRLA. Moist mucous membranes. CV: Regular rate and rhythm. CHEST: Incision site dresse d, clean, dry, and intact. Lungs are clear anteriorly. ABDOMEN: Obese, soft, nontender, nondistend ed. Positive bowel sounds. : No العلي. MUSCULOSKELETAL: Moving all 4 extremities. NEURO: Misbah mors decreased today. PSYCH: He is alert and oriented x3. TIME SPENT ON DISCHARGE: Greater than 30 minutes coordinating with Neurosurgery, discussing followup with patient. /[id number]/MODL
== END 2018-09-20 13:38 | disposition home or self-care (01) | DRG 981 ==
LOC: OBSVTOIN 13:07 → F3E 13:29 → F3N 09-19 13:32
PROVIDERS: ADMIT Internal Medicine; ATTEND Internal Medicine
PROC: 0JPT0MZ Removal of Stimulator Generator from Trunk Subcutaneous Tissue and Fascia, Open Approach (ICD-10-PCS; principal; 2018-09-19 13:30)
PROC: 0JH60MZ Insertion of Stimulator Generator into Chest Subcutaneous Tissue and Fascia, Open Approach (ICD-10-PCS; principal; 2018-09-19 13:30)
DX: J44.1 Chronic obstructive pulmonary disease with (acute) exacerbation (principal); J96.21 Acute and chronic respiratory failure with hypoxia; J06.9 Acute upper respiratory infection, unspecified; I50.33 Acute on chronic diastolic (congestive) heart failure; G25.0 Essential tremor; I10 Essential (primary) hypertension; I25.10 Atherosclerotic heart disease of native coronary artery without angina pectoris; E66.9 Obesity, unspecified; I48.91 Unspecified atrial fibrillation; G47.33 Obstructive sleep apnea (adult) (pediatric); I50.810 Right heart failure, unspecified; E66.01 Morbid (severe) obesity due to excess calories; I95.9 Hypotension, unspecified; F32.9 Major depressive disorder, single episode, unspecified; Z68.41 Body mass index [BMI] 40.0-44.9, adult; Z96.653 Presence of artificial knee joint, bilateral
CPT/HCPCS: 84484-ER; 96374; 97116-GP; 97162-GP; 97166-GO; C1767; C1787; J0171; J0690; J1580; J1940; J2250; J2704; J2930; J3010; J7512; J7613

== ENCOUNTER → 2018-11-29 | Outpatient (CLI) | payer OTHER ==
[~2018-11-29] MED LIST: IOPAMIDOL (ISOVUE 370) 100 ML BTL IV ONE
== END ==
LOC: FIMAGING 14:43
PROVIDERS: ATTEND Internal Medicine Pulmonary Disease
DX: R06.09 Other forms of dyspnea (principal); Z86.711 Personal history of pulmonary embolism; I70.0 Atherosclerosis of aorta; I25.10 Atherosclerotic heart disease of native coronary artery without angina pectoris; K44.9 Diaphragmatic hernia without obstruction or gangrene; I51.7 Cardiomegaly
CPT/HCPCS: Q9967